=== PATIENT | female | born 1985 | race Caucasian/White ===

== ENCOUNTER 2024-04-17 17:31 | Emergency (ER) | payer OTHER ==
[~2024-04-17] VITALS: Ht 157.5 cm; Wt 65.8 kg
[2024-04-17 18:04] LABS: BASOPHILS # (AUTO) 0.1 K/uL (0.0-0.2); BASOPHILS % (AUTO) 0.5 % (0.0-2.0); EOSINOPHILS # (AUTO) 0.1 K/uL (0.0-0.7); EOSINOPHILS % (AUTO) 0.6 % (0.0-6.0); HEMATOCRIT 41 % (33-45); HEMOGLOBIN 13.6 g/dL (11.5-14.8); LYMPHOCYTES # (AUTO) 2.5 K/uL (0.8-4.8); LYMPHOCYTES % (AUTO) 26.5 % (20.0-44.0); MEAN CORPUSCULAR HEMOGLOBIN 30 PG (26.0-33.0); MEAN CORPUSCULAR HGB CONC 34 g/dl (31.0-36.0); MEAN CORPUSCULAR VOLUME 88 fL (82-100); MONOCYTES # (AUTO) 0.6 K/uL (0.1-1.30); MONOCYTES % (AUTO) 6.8 % (2.0-12.0); NEUTROPHILS # (AUTO) 6.1 K/uL (1.8-8.9); NEUTROPHILS % (AUTO) 65.6 % (43.0-81.0); PLATELET COUNT (AUTO) 300 K/uL (150-450); RED BLOOD CELL COUNT(AUTO) 4.58 MIL/uL (4.0-5.2); RED CELL DISTRIBUTION WIDTH 12.2 % (11.5-15.0); WHITE BLOOD COUNT (AUTO) 9.3 K/uL (4.3-11.0)
[2024-04-17 18:09] LABS: CALCIUM, SERUM 9.4 mg/dL (8.5-10.1); CREATININE 0.9 mg/dL (0.6-1.3)
[2024-04-17 18:14] LABS: ALBUMIN 4.6 g/dL (3.4-5.0); BILIRUBIN,TOTAL 0.4 mg/dL (0.2-1.0); MAGNESIUM 2.1 mg/dL (1.8-2.4); PHOSPHORUS 3.3 mg/dL (2.5-4.9); TOTAL PROTEIN, SERUM 8.5 g/dL (6.4-8.2)
[2024-04-17] MEDS: LORAZEPAM INJ 2 MG/ML VIAL IV ONE (18:30)
[2024-04-17] MEDS ORDERED: LORAZEPAM INJ 2 MG/ML VIAL ONE (18:33)
[2024-04-17] MEDS: IV NS 0.9% 1,000 ML BAG IV ONE (18:35)
[2024-04-17 19:29] VITALS: BP 124/76; TEMP 98.8; O2SAT 100
== END 2024-04-17 19:25 | disposition home or self-care (01) ==
LOC: ER 17:44
DX: T63.301A Toxic effect of unspecified spider venom, accidental (unintentional), initial encounter (principal); M25.512 Pain in left shoulder; R20.2 Paresthesia of skin; Z88.0 Allergy status to penicillin; Y92.89 Other specified places as the place of occurrence of the external cause
CPT/HCPCS: 99283; 96374; 96361; 85025; 83735; 84100; 36415; 80053; J2060; J7030; A4223